=== PATIENT | male | born 1965 | race African-American/Black ===

== ENCOUNTER → 2022-12-20 | Outpatient (CLI) | payer MEDICARE ==
[~2022-12-20] MED LIST: AMLODIPINE BESYL5 MG PO; ASPIRIN81 MG PO; BACLOFEN10 MG PO; CEFPODOXIME PR200 MG PO; CLOPIDOGREL75 MG PO; DICYCLOMINE HCL20 MG PO; FLOMAX0.4 MG PO; GAS RELIEF125 MG; LEVOFLOXACIN500 MG PO; LINZESS290 MCG PO; METHENAMINE MAND1 GM; MYRBETRIQ50 MG PO; NEURONTIN400 MG PO; OXYBUTYNIN CHLOR5 MG PO; TIZANIDINE HCL4 M1 PO; TRAZODONE HCL50 MG PO; ULTRAM 50MG50 MG PO
== END ==
LOC: DX 09:23
PROVIDERS: ATTEND Internal Medicine Gastroenterology
DX: K62.89 Other specified diseases of anus and rectum (principal); R10.9 Unspecified abdominal pain; R14.0 Abdominal distension (gaseous); R12 Heartburn; K62.5 Hemorrhage of anus and rectum; Z12.11 Encounter for screening for malignant neoplasm of colon
CPT/HCPCS: 74280